=== PATIENT | female | born 1960 | race Caucasian/White ===

== ENCOUNTER → 2025-02-20 | Outpatient (CLI) | payer BC, SELFPAY ==
--- NOTE | 2025-02-20 16:00 | XR_ITS ---
Examination: CT chest, without intravenous contrast. Sagittal and coronal 2-D reconstructions. Exam date and time: February 20, 2025 1616 hours Comparison January 30, 2024 INDICATIONS: CT chest January 30, 2024 4 mm 6 mm pulmonary nodules right upper lobe 4 mm pulmonary nodule right lower lobe CTDI:vol (mGy) 7.07 DLP: (mGycm) 290 Technique: Multiple 3.0 mm axial sections of the chest to been obtained. Bone and lung density settings are obtained. Sagittal and coronal 2-D reconstructions have been obtained. Low dose protocols were performed. One or more of the following dose reduction techniques were used; automated exposure control, adjustment of the mA and/or KV according to patient size, use of iterative reconstruction technique. Findings: No thoracic lytic aneurysm dilatation Pulmonary artery segments are not enlarged No paratracheal tracheobronchial or bronchopulmonary adenopathy Stable 6 mm 4 mm pulmonary nodules right upper lobe No new pulmonary nodules No pneumonia or pulmonary edema Small pericardial effusion No focal liver or splenic lesions Moderate right renal parenchymal scar formation Moderate to advanced diffuse thoracic lumbar degenerative disc disease IMPRESSION: Stable 6 mm 4 mm pulmonary nodules right upper lobe, no new pulmonary nodules
== END | disposition home or self-care (01) ==
PROVIDERS: PCP Internal Medicine; Referring Provider Internal Medicine; Visit Provider Internal Medicine
DX: R91.8 Other nonspecific abnormal finding of lung field (principal)
CPT/HCPCS: 71250